=== PATIENT | female | born 1955 | race Two or more races ===

== ENCOUNTER 2024-04-05 22:11 | Inpatient (IN) | payer MEDICARE, MEDICAID ==
[~2024-04-05] VITALS: Ht 162.6 cm; Wt 92.6 kg
[2024-04-05 23:24] LABS: BASOPHILS % 0.4 % (0.0-2.0); EOSINOPHILS % 1.1 % (0.0-5.0); HEMATOCRIT. 44.4 % (36.0-48.0); HEMOGLOBIN. 14.7 g/dL (12.0-16.0); LYMPHOCYTES % 29.6 % (20.0-50.0); MEAN CORPUSCULAR HEMOGLOBIN 31.8 pg (28.0-32.0); MEAN CORPUSCULAR HGB CONC 33.2 g/dL (31.0-37.0); MEAN CORPUSCULAR VOLUME 95.6 fL (81.0-99.0); MEAN PLATELET VOLUME 9.8 fl (7.4-10.4); MONOCYTES % 11.7 % (2.0-8.0); NEUTROPHILS % 57.2 % (40.0-76.0); PLATELET 122 x1000/uL (130-400); RED BLOOD CELL COUNT 4.64 mill/uL (4.2-5.4); RED CELL DISTRIBUTION WIDTH 13.7 % (11.6-14.6); WHITE BLOOD COUNT 6.2 x1000/uL (4.5-11.0)
[2024-04-05 23:28] LABS: CHLORIDE 107 mEq/L (98-107); POTASSIUM 3.8 mEq/L (3.5-5.1); SODIUM 142 mEq/L (136-145)
[2024-04-05 23:30] LABS: CALCIUM 10.3 mg/dL (8.7-10.4); CARBON DIOXIDE 29 mEq/L (21-32)
[2024-04-05] MEDS: LACTATED RINGERS 1,000 ML IV SCH (23:30)
[2024-04-05 23:35] LABS: CREATININE 0.9 mg/dL (0.6-1.0); GLUCOSE 188 mg/dL (70-105); UREA NITROGEN BLOOD 20 mg/dL (9-23)
[2024-04-05 23:36] LABS: ALANINE AMINOTRANSFERASE 26 IU/L (10-49); ASPARTATE AMINOTRANSFERASE 31 IU/L (<34)
[2024-04-05 23:37] LABS: ACETAMINOPHEN 9 ug/mL (10-30); ALBUMIN 4.1 g/dL (3.2-4.8); BILIRUBIN TOTAL 1.8 mg/dL (0.1-1.0); PROTEIN TOTAL 6.7 g/dL (6.0-8.3)
[2024-04-05 23:42] LABS: ETHANOL BLOOD < 10 mg/dL (<10)
[2024-04-06 01:29] LABS: TROPONIN I HIGH SENSITIVITY < 4 ng/L (3.0-34)
[2024-04-06] MEDS ORDERED: ACETAMINOPHEN 325MG TABLET PO PRN (10:00)
[2024-04-06] MEDS ORDERED: ONDANSETRON HCL 4MG/2ML INJ IV PRN (10:00)
[2024-04-06] MEDS ORDERED: DEXTROSE 50% WATER 50ML SYRINGE IV PRN (10:00)
[2024-04-06] MEDS ORDERED: IPRATROPIUM/ALBUTEROL 0.5-3(2.5)MG/3ML NEB HHN PRN (10:00)
[2024-04-06] MEDS: BLOOD SUGAR DIAGNOSTIC STRIP TEST SCH (11:45)
[2024-04-06 12:00] VITALS: BP 101/85; PULSE 72; RESP 17; TEMP 98.3
[2024-04-06] MEDS: INSULIN LISPRO 100 UNITS/ML SUBCUT SCH (12:20)
[2024-04-06] MEDS ORDERED: LORAZEPAM 2MG/ML INJ IV PRN (13:15)
[2024-04-06] MEDS: CHLORDIAZEPOXIDE 25MG CAPSULE PO SCH (14:00)
[2024-04-06 16:00] VITALS: BP 108/74; PULSE 72; RESP 24; TEMP 98
[2024-04-06 18:45] VITALS: BP 101/85; PULSE 78; RESP 20; TEMP 98.1
[2024-04-06] MEDS: THIAMINE HCL 100MG TABLET PO SCH (19:49)
[2024-04-06] MEDS: MULTIVITAMINS,THER W-MINERALS TABLET PO SCH (19:49)
[2024-04-06] MEDS: FOLIC ACID 1MG TABLET PO SCH (19:50)
[2024-04-06 20:00] VITALS: BP 123/63; PULSE 81; RESP 16; TEMP 98.2
[2024-04-06] MEDS ORDERED: QUET300T2 MT (20:35)
[2024-04-06] MEDS ORDERED: BUSP10TA4 MT (20:35)
[2024-04-06] MEDS ORDERED: METF-414 MT (20:35)
[2024-04-06] MEDS ORDERED: GABA-532 MT (20:35)
[2024-04-06] MEDS: BUSPIRONE HCL 5MG TABLET PO SCH (21:31)
[2024-04-06] MEDS: GABAPENTIN 300MG CAPSULE PO SCH (21:31)
[2024-04-06] MEDS: QUETIAPINE FUMARATE 25MG TABLET PO SCH (21:31)
[2024-04-07] VITALS (7 sets, daily range): BP systolic 107–136; BP diastolic 64–93; PULSE 68–84; RESP 13–23; TEMP 97.8–98.2
[2024-04-07] MEDS: ACETAMINOPHEN 325MG TABLET PO PRN (00:37)
[2024-04-07 00:52] LABS: CLARITY URINE CLOUDY (CLEAR); COLOR URINE YELLOW (YELLOW); GLUCOSE URINE 3+ (NEGATIVE); KETONES URINE NEGATIVE (NEGATIVE); LEUKOCYTE ESTERASE URINE NEGATIVE (NEGATIVE); NITRITE URINE NEGATIVE (NEGATIVE); OCCULT BLOOD URINE NEGATIVE (NEGATIVE); PROTEIN URINE NEGATIVE (NEGATIVE); SPECIFIC GRAVITY URINE 1.036 (1.005-1.030)
[2024-04-07 01:02] LABS: *AMPHETAMINES SCREEN URINE PRESUMPTIVE POSITIVE (NEGATIVE); *BARBITURATES SCREEN URINE NEGATIVE (NEGATIVE); *BENZODIAZEPINES SCREEN URINE NEGATIVE (NEGATIVE); *COCAINE SCREEN URINE NEGATIVE (NEGATIVE); CANNABINOID URINE SCREEN NEGATIVE (NEGATIVE); ECSTASY MDMA SCREEN URINE NEGATIVE (NEGATIVE); METHADONE URINE SCREEN NEGATIVE (NEGATIVE); OPIATES URINE SCREEN NEGATIVE (NEGATIVE); PHENCYCLIDINE URINE SCREEN NEGATIVE (NEGATIVE)
[2024-04-07 01:07] LABS: BACTERIA URINE 4+; RBC URINE NONE SEEN /hpf (0-2); SQUAMOUS EPITHELIAL CELL URINE 1+ /lpf (RARE/1+); WBC URINE 25-50 /hpf (0-2)
[2024-04-07 06:05] LABS: CARBON DIOXIDE 26 mEq/L (21-32); CHLORIDE 105 mEq/L (98-107); POTASSIUM 3.6 mEq/L (3.5-5.1); SODIUM 139 mEq/L (136-145)
[2024-04-07 06:06] LABS: CALCIUM 9.3 mg/dL (8.7-10.4)
[2024-04-07 06:11] LABS: CREATININE 0.7 mg/dL (0.6-1.0); GLUCOSE 157 mg/dL (70-105); UREA NITROGEN BLOOD 13 mg/dL (9-23)
[2024-04-07 06:22] LABS: BASOPHILS % 0.2 % (0.0-2.0); EOSINOPHILS % 1.1 % (0.0-5.0); HEMATOCRIT. 44.8 % (36.0-48.0); HEMOGLOBIN. 15.1 g/dL (12.0-16.0); LYMPHOCYTES % 34.2 % (20.0-50.0); MEAN CORPUSCULAR HEMOGLOBIN 31.6 pg (28.0-32.0); MEAN CORPUSCULAR HGB CONC 33.8 g/dL (31.0-37.0); MEAN CORPUSCULAR VOLUME 93.6 fL (81.0-99.0); MEAN PLATELET VOLUME 9.9 fl (7.4-10.4); MONOCYTES % 9.3 % (2.0-8.0); NEUTROPHILS % 55.2 % (40.0-76.0); PLATELET 121 x1000/uL (130-400); RED BLOOD CELL COUNT 4.79 mill/uL (4.2-5.4); RED CELL DISTRIBUTION WIDTH 14.3 % (11.6-14.6); WHITE BLOOD COUNT 5.4 x1000/uL (4.5-11.0)
[2024-04-07] MEDS: METFORMIN HCL 850MG TABLET PO SCH (08:23)
[2024-04-07 10:18] LABS: *AMPHETAMINES SCREEN URINE PRESUMPTIVE POSITIVE (NEGATIVE)
[2024-04-07 10:19] LABS: *BARBITURATES SCREEN URINE NEGATIVE (NEGATIVE); *BENZODIAZEPINES SCREEN URINE NEGATIVE (NEGATIVE); *COCAINE SCREEN URINE NEGATIVE (NEGATIVE); CANNABINOID URINE SCREEN NEGATIVE (NEGATIVE); ECSTASY MDMA SCREEN URINE NEGATIVE (NEGATIVE); METHADONE URINE SCREEN NEGATIVE (NEGATIVE); OPIATES URINE SCREEN NEGATIVE (NEGATIVE); PHENCYCLIDINE URINE SCREEN NEGATIVE (NEGATIVE)
[2024-04-07] MEDS: CEFTRIAXONE 1GM/50ML 50 ML IV SCH (18:36)
[2024-04-08] VITALS (7 sets, daily range): BP systolic 111–143; BP diastolic 68–97; PULSE 65–85; RESP 13–19; TEMP 97.1–98.1
[2024-04-08] MEDS: BUSPIRONE HCL 5MG TABLET PO SCH (21:12)
[2024-04-09 00:15] VITALS: BP 128/88; PULSE 91; RESP 14; TEMP 97.1
[2024-04-09 04:15] VITALS: BP 113/80; PULSE 77; RESP 13; TEMP 97
[2024-04-09 08:00] VITALS: BP 113/80; PULSE 73; RESP 17; TEMP 97.2
[2024-04-09 12:00] VITALS: BP 120/79; PULSE 85; RESP 18; TEMP 97.9
[2024-04-09 16:00] VITALS: BP 120/79; PULSE 93; RESP 20; TEMP 97.5
[2024-04-09 20:00] VITALS: BP 108/82; PULSE 85; RESP 15; TEMP 97
[2024-04-10] VITALS (7 sets, daily range): BP systolic 57–122; BP diastolic 34–72; PULSE 69–86; RESP 12–16; TEMP 97.2–98.3
[2024-04-10] MEDS: DULOXETINE HCL 20MG DR CAPSULE PO SCH (09:00)
[2024-04-10] MEDS: LEVOFLOXACIN 500MG TABLET PO NR (19:05)
[2024-04-11 00:02] VITALS: BP 128/75; PULSE 78; RESP 13; TEMP 97.4
[2024-04-11 04:00] VITALS: BP 85/52; PULSE 68; RESP 11; TEMP 97.6
[2024-04-11 08:00] VITALS: BP 101/60; PULSE 68; RESP 12; TEMP 97.8
[2024-04-11] MEDS ORDERED: QUET25TA PO (08:33)
[2024-04-11] MEDS ORDERED: CYM20 PO (08:33)
[2024-04-11] MEDS ORDERED: METF-874 MT (08:33)
[2024-04-11 12:00] VITALS: BP 103/68; PULSE 75; RESP 15; TEMP 97.7
[2024-04-11] MEDS ORDERED: CHLO25CA11 MT (13:28)
[2024-04-11] MEDS ORDERED: LEVOFLOXACIN 500MG TABLET PO SCH (17:00)
[2024-04-11] MEDS: LEVOFLOXACIN 250MG TABLET PO SCH (17:49)
[2024-04-11 20:00] VITALS: BP 116/71; PULSE 78; RESP 16; TEMP 98.1
[2024-04-12] VITALS: BP 108/71; PULSE 81; RESP 18; TEMP 97.3
[2024-04-12 04:00] VITALS: BP 107/80; PULSE 76; RESP 15; TEMP 98.1
[2024-04-12 08:00] VITALS: BP 118/87; PULSE 67; RESP 12; TEMP 98.2
[2024-04-12] MEDS: CHLORDIAZEPOXIDE 25MG CAPSULE PO SCH (08:47)
[2024-04-12] MEDS: DOCUSATE SODIUM 100MG CAPSULE PO PRN (08:48)
[2024-04-12] MEDS ORDERED: BLOO-1465 MT (11:28)
[2024-04-12 13:59] VITALS: BP 125/70; PULSE 73; TEMP 98; O2SAT 95
== END 2024-04-12 16:10 | disposition home or self-care (01) | DRG 689 ==
LOC: ER 22:11 → 5WST 04-06 01:26 → 3WST 04-06 11:47
PROVIDERS: ADMIT Family Medicine Adult Medicine; ATTEND Family Medicine Adult Medicine
DX: N39.0 Urinary tract infection, site not specified (principal); G92.8 Other toxic encephalopathy; F43.10 Post-traumatic stress disorder, unspecified; I10 Essential (primary) hypertension; E11.9 Type 2 diabetes mellitus without complications; F41.9 Anxiety disorder, unspecified; Z79.84 Long term (current) use of oral hypoglycemic drugs; F15.90 Other stimulant use, unspecified, uncomplicated; E80.6 Other disorders of bilirubin metabolism; B96.89 Other specified bacterial agents as the cause of diseases classified elsewhere
CPT/HCPCS: 36415; 71045; 80048; 80053; 80305; 80307; 80320; 80329; 81003; 82962; 83036; 84484; 85025; 87077; 87186; 93005; 99291; J0696; J1815; G0480